=== PATIENT | female | born 1955 | race Caucasian/White ===

== ENCOUNTER 2024-12-01 11:03 | Emergency (ER) | payer MEDICARE, OTHER | END 2024-12-01 12:30 | disposition home or self-care (01) | LOC: LB.ED 11:03 | DX: S61.243A Puncture wound with foreign body of left middle finger without damage to nail, initial encounter (principal); Z88.2 Allergy status to sulfonamides; Z88.8 Allergy status to other drugs, medicaments and biological substances; W45.8XXA Other foreign body or object entering through skin, initial encounter | CPT/HCPCS: 64450; 99283-25; J2003 ==